=== PATIENT | male | born 1960 | race Caucasian/White ===

== ENCOUNTER 2021-03-03 14:29 | Emergency (ER) | payer OTHER ==
[~2021-03-03] VITALS: Ht 188 cm; Wt 81.7 kg
[~2021-03-03 14:29] MED LIST: ACETAMINOPHEN-1 EAC1 PO; FINASTERIDE5 MG PO; IBUPROFEN 800800 MG PO; KEFLEX500 MG PO; MOBIC7.5 MG PO; PROSCAR 5MG TABL5 MG PO; PROTEIN SUPPLEMENT PO; TOBRADEX EYE O3.5 GM OPHTHALMIC; TRAMADOL 50 MG50 MG PO; ULTRACET TABLE1 EACH PO
[2021-03-03 17:45] VITALS: BP 134/72
== END 2021-03-03 17:45 | disposition home or self-care (01) ==
LOC: M.ERS 14:29
DX: M47.16 Other spondylosis with myelopathy, lumbar region (principal); M54.31 Sciatica, right side; I10 Essential (primary) hypertension; F17.210 Nicotine dependence, cigarettes, uncomplicated; Z88.0 Allergy status to penicillin